=== PATIENT | female | born 1940 | race Caucasian/White ===

== ENCOUNTER 2018-06-19 14:04 | Emergency (ER) | payer OTHER ==
[~2018-06-19] VITALS: Ht 152.4 cm; Wt 65.8 kg
[2018-06-19] MEDS ORDERED: AVAPRO300 MG (14:23)
[2018-06-19] MEDS ORDERED: ATENOLOL50 MG (14:23)
[2018-06-19] MEDS ORDERED: SYNTHROID88 MCG (14:23)
[2018-06-19] MEDS ORDERED: ATORVASTATIN CA40 MG (14:23)
== END 2018-06-19 17:38 | disposition home or self-care (01) ==
LOC: ER 14:04
DX: M13.861 Other specified arthritis, right knee (principal); M17.11 Unilateral primary osteoarthritis, right knee

== ENCOUNTER 2019-01-15 13:27 | Outpatient (CLI) | payer OTHER ==
[~2019-01-15 13:27] MED LIST: ATENOLOL50 MG; ATORVASTATIN CA40 MG; AVAPRO300 MG; SYNTHROID88 MCG
== END 2019-01-15 14:00 | disposition home or self-care (01) ==
LOC: NUCLEAR 13:27
DX: I65.29 Occlusion and stenosis of unspecified carotid artery (principal)

== ENCOUNTER → 2019-08-16 | Emergency (ER) | payer OTHER ==
[~2019-08-16] VITALS: Ht 152.4 cm; Wt 62.6 kg
== END | disposition home or self-care (01) ==
LOC: ER 18:15
DX: M62.81 Muscle weakness (generalized) (principal)

== ENCOUNTER 2019-08-23 13:57 | Outpatient (CLI) | payer OTHER | END 2019-08-23 14:02 | disposition home or self-care (01) | LOC: LAB 13:57 | DX: G46.3 Brain stem stroke syndrome (principal); I63.89 Other cerebral infarction ==

== ENCOUNTER 2019-08-26 09:57 | Outpatient (CLI) | payer OTHER | END 2019-08-26 11:00 | disposition home or self-care (01) | LOC: MRI 09:57 | DX: G46.3 Brain stem stroke syndrome (principal); I63.89 Other cerebral infarction | CPT/HCPCS: 70553; A9575 ==

== ENCOUNTER 2019-11-11 16:14 | Outpatient (CLI) | payer OTHER | END 2019-11-11 17:00 | disposition home or self-care (01) | LOC: RAD 16:14 | DX: J45.998 Other asthma (principal) ==

== ENCOUNTER 2019-12-04 01:38 | Emergency (ER) | payer OTHER ==
[~2019-12-04] VITALS: Ht 152.4 cm; Wt 62.1 kg
[2019-12-04] MEDS ORDERED: ZETIA10 MG (02:09)
== END 2019-12-04 04:31 | disposition home or self-care (01) ==
LOC: ER 01:38
DX: I16.0 Hypertensive urgency (principal); I10 Essential (primary) hypertension

== ENCOUNTER 2019-12-04 17:39 | Emergency (ER) | payer OTHER ==
[~2019-12-04] VITALS: Ht 152.4 cm; Wt 61.7 kg
[~2019-12-04 17:39] MED LIST changes: +ZETIA10 MG
== END 2019-12-04 21:13 | disposition home or self-care (01) ==
LOC: ER 17:39
DX: I16.0 Hypertensive urgency (principal); I10 Essential (primary) hypertension

== ENCOUNTER 2019-12-12 13:21 | Outpatient (CLI) | payer OTHER | END 2019-12-12 13:27 | disposition home or self-care (01) | LOC: LAB 13:21 | DX: J10.1 Influenza due to other identified influenza virus with other respiratory manifestations (principal); A49.3 Mycoplasma infection, unspecified site ==

== ENCOUNTER 2020-05-07 14:17 | Emergency (ER) | payer OTHER ==
[~2020-05-07] VITALS: Ht 152.4 cm; Wt 64.9 kg
== END 2020-05-07 21:52 | disposition home or self-care (01) ==
LOC: ER 14:17
DX: R20.8 Other disturbances of skin sensation (principal); E07.89 Other specified disorders of thyroid; T38.1X5A Adverse effect of thyroid hormones and substitutes, initial encounter; Y92.89 Other specified places as the place of occurrence of the external cause

== ENCOUNTER 2020-05-11 10:43 | Outpatient (CLI) | payer OTHER | END 2020-05-11 10:50 | disposition home or self-care (01) | LOC: LAB 10:43 | PROVIDERS: ATTEND General Practice | DX: E03.8 Other specified hypothyroidism (principal) ==

== ENCOUNTER → 2021-03-03 | Outpatient (CLI) | payer OTHER | END | disposition home or self-care (01) | LOC: NUCLEAR 09:00 | DX: I87.2 Venous insufficiency (chronic) (peripheral) (principal) ==

== ENCOUNTER → 2021-04-05 | Outpatient (CLI) | payer OTHER | END | disposition home or self-care (01) | LOC: NUCLEAR 14:00 | DX: M81.0 Age-related osteoporosis without current pathological fracture (principal) ==

== ENCOUNTER 2021-04-23 07:55 | Outpatient (CLI) | payer OTHER | END 2021-04-23 07:58 | disposition home or self-care (01) | LOC: NUCLEAR 07:55 | PROVIDERS: ATTEND Internal Medicine Cardiovascular Disease | DX: R07.89 Other chest pain (principal); I50.1 Left ventricular failure, unspecified | CPT/HCPCS: 78452; 93017; A9500; J0153 ==

== ENCOUNTER 2021-05-11 20:08 | Emergency (ER) | payer OTHER ==
[~2021-05-11] VITALS: Ht 152.4 cm; Wt 59.9 kg
[2021-05-12] MEDS ORDERED: ORASEP SPRAY30 ML MM (01:32)
== END 2021-05-12 01:44 | disposition home or self-care (01) ==
LOC: ER 20:08
DX: T18.198A Other foreign object in esophagus causing other injury, initial encounter (principal); W45.8XXA Other foreign body or object entering through skin, initial encounter; Y93.89 Activity, other specified; Y92.89 Other specified places as the place of occurrence of the external cause; Y99.8 Other external cause status

== ENCOUNTER 2022-04-07 10:12 | Outpatient (CLI) | payer OTHER ==
[~2022-04-07 10:12] MED LIST changes: +ORASEP SPRAY30 ML MM
== END 2022-04-07 10:20 | disposition home or self-care (01) ==
LOC: SONOGRAMA 10:12
DX: R10.2 Pelvic and perineal pain (principal)

== ENCOUNTER 2022-04-22 12:53 | Outpatient (CLI) | payer OTHER | END 2022-04-22 13:00 | disposition home or self-care (01) | LOC: NUCLEAR 12:53 | PROVIDERS: ATTEND Internal Medicine Endocrinology, Diabetes & Metabolism | DX: M81.0 Age-related osteoporosis without current pathological fracture (principal); Z88.8 Allergy status to other drugs, medicaments and biological substances ==

== ENCOUNTER 2022-04-25 10:14 | Outpatient (CLI) | payer OTHER | END 2022-04-25 10:16 | disposition home or self-care (01) | LOC: TOM 10:14 | PROVIDERS: ATTEND Specialist | DX: J44.9 Chronic obstructive pulmonary disease, unspecified (principal); J91.8 Pleural effusion in other conditions classified elsewhere; N64.4 Mastodynia ==

== ENCOUNTER 2022-07-01 10:35 | Outpatient (CLI) | payer OTHER | END 2022-07-01 10:37 | disposition home or self-care (01) | LOC: SONOGRAMA 10:35 | PROVIDERS: ATTEND Specialist | DX: M25.511 Pain in right shoulder (principal) ==

== ENCOUNTER 2022-10-30 20:39 | Emergency (ER) | payer OTHER ==
[~2022-10-30] VITALS: Ht 157.5 cm; Wt 55.8 kg
[2022-10-30] MEDS ORDERED: SYNTHROID75 MCG PO (20:54)
== END 2022-10-30 23:49 | disposition home or self-care (01) ==
LOC: ER 20:39
DX: I10 Essential (primary) hypertension (principal); E03.9 Hypothyroidism, unspecified; Z88.8 Allergy status to other drugs, medicaments and biological substances

== ENCOUNTER 2022-11-01 15:16 | Emergency (ER) | payer OTHER ==
[~2022-11-01] VITALS: Ht 152.4 cm; Wt 55.3 kg
[~2022-11-01 15:16] MED LIST changes: +SYNTHROID75 MCG PO
== END 2022-11-01 21:30 | disposition home or self-care (01) ==
LOC: ER 15:16
DX: I10 Essential (primary) hypertension (principal)

== ENCOUNTER 2022-11-11 11:24 | Outpatient (CLI) | payer OTHER | END 2022-11-12 10:20 | disposition home or self-care (01) | LOC: RAD 11:24 | PROVIDERS: ATTEND Internal Medicine | DX: M54.59 Other low back pain (principal); M25.651 Stiffness of right hip, not elsewhere classified ==

== ENCOUNTER → 2023-01-06 | Outpatient (CLI) | payer OTHER | END | disposition home or self-care (01) | LOC: NUCLEAR 04-07 10:00 | PROVIDERS: ATTEND Internal Medicine | DX: I11.9 Hypertensive heart disease without heart failure (principal); E78.2 Mixed hyperlipidemia ==

== ENCOUNTER 2023-03-31 12:25 | Outpatient (CLI) | payer OTHER | END 2023-03-31 12:29 | disposition home or self-care (01) | LOC: SONOGRAMA 12:25 | PROVIDERS: ATTEND Specialist | DX: R10.2 Pelvic and perineal pain (principal); M16.11 Unilateral primary osteoarthritis, right hip ==

== ENCOUNTER 2023-11-23 11:29 | Outpatient (CLI) | payer OTHER | END 2023-11-23 11:36 | disposition home or self-care (01) | LOC: RAD 11:29 | PROVIDERS: ATTEND Ophthalmology | DX: H25.011 Cortical age-related cataract, right eye (principal); Z98.41 Cataract extraction status, right eye ==

== ENCOUNTER 2023-12-29 13:39 | Emergency (ER) | payer OTHER ==
[~2023-12-29] VITALS: Ht 152.4 cm; Wt 59.0 kg
[2023-12-29] MEDS ORDERED: ENALAPRILAT DIHYDRATE 1.25 MG/ML VIAL IV ONE ×2 (16:15→18:15)
[2023-12-29 17:11] LABS: HEMATOCRIT 39.8 % (36.0-45.00); HEMOGLOBIN 13.4 g/dL (12.0-15.00); MEAN CELL VOLUME 88.4 fL (80.00-100.00); MEAN CORPUSCULAR HEMOGLOBIN 29.8 pg (27.00-32.0); MEAN CORPUSCULAR HGB CONC 33.7 g/dl (32.0-36.0); PLATELET COUNT 158 K/uL (150-450); RED CELL DISTRIBUTION WIDTH 14.2 % (11.5-14.5)
[2023-12-29 17:44] LABS: ALBUMIN 4.2 gm/dL (3.4-5.0); BILIRUBIN TOTAL 0.55 mg/dL (0.3-1.2); CALCIUM 10.1 mg/dL (8.5-10.1); CREATININE SERUM 0.89 mg/dL (0.55-1.02); GFR 60.57; GLOBULINA 3.4 G/DL (2.4-3.5); POTASSIUM 4.31 mEq/L (3.5-5.1); TOTAL PROTEIN 7.6 gm/dL (6.4-8.2)
[2023-12-29 20:00] LABS: URINE APPEARANCE Clear; URINE BILIRRUBIN Negative (NEGATIVE); URINE BLOOD Trace; URINE COLOR Yellow; URINE GLUCOSE Negative (NEGATIVE); URINE LEUKOCYTE Moderate; URINE NITRATE Negative; URINE PROTEIN Negative (NEGATIVE); URINE UROBILINOGEN 0.2 E.U./dl
[2023-12-29 20:04] LABS: URINE BACTERIA 236.8 uL (0.0-1933); URINE EPITHELIAL CELLS 17.1 uL (0.0-38.8); URINE RBC 11.6 uL (0.0-20.8); URINE WBC 58.5 uL (0.0-23.2)
== END 2023-12-29 21:22 | disposition home or self-care (01) ==
LOC: ER 13:39
PROVIDERS: Nurse Practitioner Family
DX: I10 Essential (primary) hypertension (principal)
CPT/HCPCS: 36415; 71046; 96365; 99283; J3490

== ENCOUNTER 2023-12-30 18:03 | Emergency (ER) | payer OTHER ==
[~2023-12-30] VITALS: Ht 152.4 cm; Wt 58.1 kg
[2023-12-30 19:04] LABS: HEMATOCRIT 38.8 % (36.0-45.00); HEMOGLOBIN 13.2 g/dL (12.0-15.00); MEAN CORPUSCULAR HEMOGLOBIN 29.6 pg (27.00-32.0); PLATELET COUNT 147 K/uL (150-450); RED BLOOD COUNT 4.46 M/uL (4.00-6.00); RED CELL DISTRIBUTION WIDTH 13.9 % (11.5-14.5)
[2023-12-30 19:33] LABS: ALBUMIN 4.2 gm/dL (3.4-5.0); BILIRUBIN TOTAL 0.83 mg/dL (0.3-1.2); CALCIUM 9.7 mg/dL (8.5-10.1); CKMB 2.8 NG/ML (0.5-3.6); CREATININE SERUM 0.93 mg/dL (0.55-1.02); GFR 57.58; GLOBULINA 3.5 G/DL (2.4-3.5); POTASSIUM 4.09 mEq/L (3.5-5.1); TOTAL PROTEIN 7.7 gm/dL (6.4-8.2)
[2023-12-30] MEDS ORDERED: 0.9 % SODIUM CHLORIDE 500 ML IV ONE (21:00)
== END 2023-12-31 00:29 | disposition home or self-care (01) ==
LOC: ER 18:03
PROVIDERS: Emergency Medicine
DX: R51.9 Headache, unspecified (principal); I16.0 Hypertensive urgency; I10 Essential (primary) hypertension; E03.9 Hypothyroidism, unspecified; I25.10 Atherosclerotic heart disease of native coronary artery without angina pectoris; E78.00 Pure hypercholesterolemia, unspecified; F41.8 Other specified anxiety disorders; E86.0 Dehydration; Z88.8 Allergy status to other drugs, medicaments and biological substances
CPT/HCPCS: 36415; 71046; 93005; 96365; 96366; 99283; J7042

== ENCOUNTER 2024-02-06 10:54 | Outpatient (CLI) | payer OTHER | END 2024-02-06 11:02 | disposition home or self-care (01) | LOC: SONOGRAMA 10:54 | PROVIDERS: ATTEND Specialist | DX: K81.9 Cholecystitis, unspecified (principal) ==

== ENCOUNTER 2024-02-12 10:11 | Outpatient (CLI) | payer OTHER | END 2024-02-12 10:12 | disposition home or self-care (01) | LOC: NUCLEAR 10:11 | PROVIDERS: ATTEND Internal Medicine | DX: I82.409 Acute embolism and thrombosis of unspecified deep veins of unspecified lower extremity (principal) ==

== ENCOUNTER 2024-05-27 12:13 | Outpatient (CLI) | payer OTHER | END 2024-05-27 12:17 | disposition home or self-care (01) | LOC: LAB 12:13 | PROVIDERS: ATTEND Internal Medicine | DX: I50.9 Heart failure, unspecified (principal) ==

== ENCOUNTER 2025-04-21 12:42 | Outpatient (CLI) | payer OTHER | END 2025-04-21 12:49 | disposition home or self-care (01) | LOC: RAD 12:42 | PROVIDERS: ATTEND Physical Medicine & Rehabilitation | DX: M17.11 Unilateral primary osteoarthritis, right knee (principal) ==